=== PATIENT | female | born 2000 | race African-American/Black ===

== ENCOUNTER 2020-01-16 20:43 | Emergency (ER) | payer OTHER, SELFPAY ==
[2020-01-16 20:50] VITALS: BP 144/85; PULSE 75; RESP 18; TEMP 36.6; O2SAT 98
--- NOTE | 2020-01-16 21:21 | ED.WOUNDLAC ---
HPI - Wound/Laceration General Chief Complaint: Wound/Laceration Stated Complaint: lac Time Seen by Provider: 01/16/20 20:52 History of Present Illness HPI narrative: Patient is a 19-year-old female who presents the ER with a laceration to the left third digit. It is located over the PIP. It is superficial. 1.5 cm in length. Unknown last tetanus. No numbness or tingling. Bleeding controlled. Related Data Home Medications Medication Instructions Recorded Confirmed No Home Medications 01/16/20 01/16/20 Allergies Allergy/AdvReac Type Severity Reaction Status Date / Time No Known Allergies Allergy Unknown Uncoded 01/16/20 20:44 Review of Systems Integumentary/Breasts: Comments: Finger laceration Neurologic: Denies focal weakness and Denies numbness PMFSH Past Medical History Medical History (Updated 01/16/20 @ 22:00 by Jalne Chew MD) Healthy female adult Surgical History Surgical History (Updated 01/16/20 @ 21:56 by Jalen Chew MD) No history of previous surgery Social History Social History (Updated 01/16/20 @ 21:56 by Jalen Chew MD) Alcohol intake: current Gender identity (if verbalized by the patient): Female Exam Narrative: Exam Narrative: GENERAL: Well-appearing, well-nourished, and in no acute distress. HEAD: Normocephalic, atraumatic. EXTREMITIES: Focused exam of the left third digit reveals normal flexion extension at the DIP/PIP/MCP. There is laceration over the radial aspect of the third PIP extending over to the dorsal aspect. There is no bone or tendon exposed. There is only 1 area where there is space to insert a stitch. Sharp touch intact using a 23-gauge needle. Brisk capillary refill. Laceration is 1.5 cm in total length. SKIN: Warm, dry, no rash. NEURO: No focal deficits. Alert and oriented x3. PSYCH: Normal mood and affect. Course Course Emergency Course: Discussed digital block with 1 suture. The other option was to splint patient in full extension and clean the wound and applying a bandage. Patient prefers to be splinted. Tetanus will be updated. Discharge home. Vital Signs Vital signs: Vital Signs Temperature 97.9 F 01/16/20 20:50 Pulse Rate 75 05/17/20 20:50 Respiratory Rate 18 01/16/20 20:50 Blood Pressure 144/85 H 01/16/20 20:50 Pulse Oximetry 98 01/16/20 20:50 Temperature 97.9 F 01/16/20 20:50 Pulse Rate 75 01/16/20 20:50 Respiratory Rate 18 01/16/20 20:50 Blood Pressure 144/85 H 01/16/20 20:50 Pulse Oximetry 98 01/16/20 20:50 Procedures Orthopedic Splinting/Casting Injury #1: Splinting/Casting Date: 01/16/20 Splinting/Casting Time: 21:50 Side: left Upper Extremity Injury Location: finger (Third digit) Splint: prefabricated Pre-Formed: metal foam finger splint Pre-Procedure Neuro Vascular Exam: normal Post-Procedure Neuro Vascular Exam: normal Additional Comments: Applied by nurse. Discharge Plan Discharge Clinical Impression: Laceration Patient Disposition: Home, Self-Care Condition: Stable Instructions: Laceration (ED) Additional Instructions: Return to the ER if you have new injury, your wound is red and hot and draining pus, you have fever over 100.4 ?F, you have other concerns. Prescriptions: No Action No Home Medications RF: 0 Follow-up/Referrals: PHYSICIAN,[employer] TOOL OPERATOR [Primary Care Provider] - Stand Alone Forms: Work/School Release IP
[2020-01-16 22:15] VITALS: PULSE 70; RESP 20; O2SAT 100
== END 2020-01-16 22:18 | disposition home or self-care (01) ==
PROVIDERS: Emergency Provider Emergency Medicine
DX: S61.213A Laceration without foreign body of left middle finger without damage to nail, initial encounter (principal); X58.XXXA Exposure to other specified factors, initial encounter
CPT/HCPCS: 99282